=== PATIENT | female | born 1985 | race Caucasian/White ===

== ENCOUNTER 2019-05-16 21:21 | Emergency (ER) | payer BC ==
--- NOTE | 2019-05-16 21:41 | Emergency Department Record ---
History of Present Illness - General Chief complaint: ENT Stated complaint: RT EYE IRRITATION(PINK EYE) Time Seen by Provider: 05/16/19 21:38 Source: Patient Mode of Arrival: Ambulatory Limitations: No limitations - History of Present Illness Initial comments: 34 yo female presents to ED for evaluation of worsening redness and discharge from her right eye after being seen by an opthalmologist 3 days ago and started on Keflex and Tobramycin. Patient reports that her redness has now spread to the right eye, reports discharge from the eyes as well. Patient denies significant change in vision, denies FB sensation or injury. Patient reports that she has an appointment with Dr. Jimenez tomorrow morning at 8:30 as well (11 hours). MD complaint: Other (Eye redness, discharge) Onset/Timin -: Days(s) Severity: Moderate Severity scale (1-10): 4 Quality: Burning Consistency: Constant Improves with: None Worsens with: None - Related Data Home Medications Medication Instructions Recorded Confirmed Last Taken Cephalexin [Keflex] 500 mg PO BID 05/16/19 05/16/19 05/16/19 Metformin ER HCl [Glucophage Xr] 1,000 mg PO DAILY 05/16/19 05/16/19 05/16/19 Nifedipine [Nifedipine ER] 30 mg PO DAILY 05/16/19 05/16/19 05/16/19 Tobramycin 0.3% Opth [Tobrex 0.3% 1 drop OPTH QID 05/16/19 05/16/19 05/16/19 Opth] Allergies Allergy/AdvReac Type Severity Reaction Status Date / Time neomycin AdvReac RASH Verified 05/16/19 21:39 Travel Screening - Travel/Exposure Within Last 30 Days Have you traveled within the last 30 days?: No - Travel Symptoms Symptom Screening: None Review of Systems Constitutional: Denies: Chills, Fever, Malaise, Night sweats Eyes: Reports: Eye discharge. Denies: Photophobia, Vision change ENT: Denies: Congestion, Ear pain, Epistaxis Respiratory: Denies: Cough, Dyspnea Cardiovascular: Denies: Chest pain, Dyspnea on exertion Endocrine: Denies: Fatigue, Heat or cold intolerance Gastrointestinal: Denies: Abdominal pain, Nausea, Vomiting Genitourinary: Denies: Incontinence, Retention Musculoskeletal: Denies: Arthralgia, Back pain Skin: Denies: Bruising, Change in color Neurological: Denies: Abnormal gait, Confusion, Headache, Seizure Psychiatric: Denies: Anxiety Hematological/Lymphatic: Denies: Anemia, Blood Clots Physical Exam - General General Appearance: Alert, Oriented x3, Cooperative, Mild distress Limitations: No limitations - Head Head exam: Atraumatic, Normocephalic, Normal inspection Head exam detail: negative: Abrasion, Contusion, Post's sign, General tenderness, Hematoma, Laceration - Eye Eye exam: Conjunctival injection, EOMI, Other (No pain with EOM, conjunctivitis is present bilaterally with purulent discharge noted to the canthus bilaterally). negative: Periorbital swelling, Periorbital tenderness, Scleral icterus - ENT ENT exam: TM's normal bilaterally Ear exam: negative: Auricular hematoma, Auricular trauma Nasal Exam: negative: Active bleeding, Discharge, Dried blood, Foreign body Mouth exam: negative: Drooling, Laceration, Muffled voice, Tongue elevation - Neck Neck exam: Normal inspection. negative: Meningismus, Tenderness - Respiratory Respiratory exam: Normal lung sounds bilaterally. negative: Rales, Respiratory distress, Rhonchi, Stridor - Cardiovascular Cardiovascular Exam: Regular rate, Normal rhythm, Normal heart sounds - GI/Abdominal GI/Abdominal exam: Soft. negative: Rebound, Rigid, Tenderness - Rectal Rectal exam: Deferred - exam: Deferred - Extremities Extremities exam: Normal inspection. negative: Pedal edema, Tenderness - Back Back exam: Denies: CVA tenderness (R), CVA tenderness (L) - Neurological Neurological exam: Alert, Normal gait, Oriented X3 - Psychiatric Psychiatric exam: Normal affect, Normal mood - Skin Skin exam: Normal color. negative: Abrasion Type of lesion: negative: abrasion Course Vital Signs 05/16/19 21:28 Temperature 99.3 F Pulse Rate [ 92 H Left] Respiratory 16 Rate Blood Pressure 140/91 [Left] Pulse Ox 98 - Reevaluation(s) Reevaluation #1: 05/16/19 21:49 Patient is currently taking Tobramycin for her conjunctivitis. Given that the patient is a contact lens wearer, recommending switching to Levofloaxin for treatment of conjunctivitis. Patient denies FB sensation or eye injury, denies change in vision. Denies pain with EOM, no evidence for janet-orbital/orbital cellulitis on examination. Patient has follow-up appointment in 11 hours as well. Patient appears stable for discharge at this time. Disposition Disposition: Discharge Clinical Impression: Conjunctivitis Qualifiers: Conjunctivitis type: acute Acute conjunctivitis type: unspecified Laterality: bilateral Qualified Code(s): H10.33 - Unspecified acute conjunctivitis, bilateral Disposition: Home, Self-Care Condition: (2) Stable Instructions: Conjunctivitis (ED) Additional Instructions: Return to ED if your symptoms worsen or if you have any concerns. Levafloxacin drops, 2 drops every 2 hours for 2 days, then 2 drops every 4-8 hours for days 3-5. Follow-up with Dr. Jimenez tomorrow morning as scheduled. Forms: Patient Portal Access Time of Disposition: 21:41 Quality - Quality Measures Quality Measures: N/A - Blood Pressure Screening Does Patient Have Any of the Following: Active Dx of HTN Blood Pressure Classification: Hypertensive Reading Systolic Measurement: 140 Diastolic Measurement: 91 Screening for High Blood Pressure: Patient Exclusion, Hx of HTN [[id number]]
== END 2019-05-16 21:49 | disposition home or self-care (01) ==
LOC: ER 21:21
DX: H10.33 Unspecified acute conjunctivitis, bilateral (principal)
CPT/HCPCS: 99282